=== PATIENT | female | born 1950 | race Caucasian/White ===

== ENCOUNTER 2024-06-24 08:13 | Day surgery (SDC) | payer MEDICARE, OTHER, SELFPAY ==
[2024-06-24] VITALS (9 sets, daily range): BP systolic 117–152; BP diastolic 59–78; PULSE 62–72; RESP 14–18; TEMP 36.4–37.4; O2SAT 94–99
--- NOTE | 2024-06-24 | DI.US.S_ITS ---
PROCEDURE: US BIOPSY LIVER Ultrasound-guided liver biopsy with sedation analgesia for approximately 15 minutes. INDICATIONS: LIVER MASSES TECHNIQUE: The indications, alternatives, benefits, risks, and complications of the procedure were explained to the patient. Written informed consent was obtained and placed in the chart. Continuous EKG and hemodynamic monitoring was started by trained personnel. Real-time sonography was utilized to choose the site for percutaneous hepatic biopsy. The skin was prepped and draped in the usual sterile fashion. 1% lidocaine was infiltrated down to the hepatic capsule. A coaxial needle was then advanced into the liver under direct sonographic visualization. A biopsy apparatus was then utilized, and core biopsies were obtained. The needle was then withdrawn; a bandage and overlying weight were applied to the biopsy site. COMPARISON: Outside Facility, RG, CT ABDOMEN/PELVIS WITH CONTRAST, 06/12/2024, 16:42. FINDINGS: Biopsy site(s): Left lobe of the liver, subxiphoid Needle: BlueArc biopsy needle set. 18 gauge Number of passes: 5 Medications: 1% lidocaine for local anaesthesia. IV Versed and Fentanyl for conscious sedation for approximately 15 minutes (see nursing record). Complications: None. Gelfoam slurry injected. Procedure was well tolerated. IMPRESSION: Successful ultrasound-guided liver biopsy, with pathology results pending. Dictated by: Jam Ascencio M.D. on 06/24/2024 at 17:57 Approved by: Jam Ascencio M.D. on 06/24/2024 at 17:58
--- NOTE | 2024-06-24 | PATH_ITS ---
[facility] Accession Number: [id number] No. of containers..01 Tissue . 01 Material submitted: . liver - LEFT LOBE LIVER MASS . 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 V 06/28/2024 1325 Local . 01 Comment: The immunoprofile of the malignant cells is consistent with a gastrointestinal primary. The findings of negative cytokeratin 7 and positive cytokeratin 20 may favor a lower GI (colonic) origin. That said, upper GI and heaptobiliary primary (including intrahepatic cholangiocarcinoma) cannot be entirely excluded. Correlation with clinical, endoscopic, and imaging findings are recommended to determine the primary site. . As part of routine quality control clerk, Dr. Trevino has reviewed this case and agrees with the diagnosis of adenocarcinoma with gastrointestinal immunophenotype. The preliminary finding of carcinoma was reported to Dr. Delgado via [facility] by Dr. Gomez on 06/26/2024 at 4:00 p.m. The specific findings in this case were discussed between Dr. Delgado and Dr. Gomez on 06/27/2024 at 4:25 p.m. . 01 Electronically signed: . Terrance Gomez MD, PhD, Pathologist NPI- [id number] . 01 Gross description: . Received in formalin with two patient identifiers and US biopsy liver, are seven owens needle cores, 0.4 to 1.5 cm in greatest dimension. Submitted entirely in A1. ([id number]) /MRV 06/25/2024 1744 Local . 01 Microscopic: . Sections are of liver parenchyma distorted by proliferation of epithelioid cells in a trabecular growth pattern with a sclerotic stroma. Scattered glandular lumina are seen. To further classify the malignancy, a panel of immunohistochemical stains is performed (each with an appropriately positive control). The malignant cells are strongly and diffusely positive for SASHA immunoreactivity, consistent with an adenocarcinoma. The malignant cells are negative for cytokeratin 7 immunoreactivity, and diffusely positive for cytokeratin 20 immunoreactivity. The malignant cells are negative for immunoreactivity of markers of specific differentiation including breast (GATA3), Mullerian (PAX8), neuroendocrine (synaptophysin), and lung (TTF1 and napsin A). The malignant cells are positive for villin (variable) and SATB2 immunoreactivity, consistent with gastrointestinal or hepatobiliary origin. . * This test was developed and its performance characteristics determined by [facility]. It has not been cleared or approved by the [place]. Food and Drug Administration. The FDA has determined that such clearance or approval is not necessary. This test is used for clinical purposes. It should not be regarded as investigational or for research. . 01 Pathologist provided ICD-10: C78.7 . 01 CPT . 281909, C53099, N20373 Specimen Comment: A courtesy copy of this report has been sent to [facility] Performed at: [address] [address], [place], [place] [id number] MD Valerio Trevino MD Phone: [phone]
[2024-06-24 09:04] LABS: Add Manual Diff / Slide Review NO; Basophils Absolute Auto 100 /uL (0-100); Basophils Percent Auto 0.9 % (0-2); Eosinophils Absolute Auto 300 /uL (0-450); Eosinophils Percent Auto 2.7 % (2-4); Hematocrit 40.3 % (36-46); Hemoglobin 13.6 g/dL (12.0-16.0); Lymphocytes Absolute Auto 500 /uL (1100-4500); Lymphocytes Percent Auto 4.3 % (25-40); Mean Corpuscular HGB Conc 33.7 % (30-36); Mean Corpuscular Hemoglobin 29.9 PG (26-34); Mean Corpuscular Volume 88.7 fL (80-100); Monocytes Absolute Auto 1100 /uL (0-900); Monocytes Percent Auto 8.7 % (3-14); Neutrophils Absolute Auto 10600 /uL (1500-7000); Neutrophils Percent Auto 83.4 % (50-75); Platelet Count 319 X10^3/uL (150-400); Red Blood Cell Count 4.55 X10^6/uL (4.0-5.2); Red Cell Distribution Width 13.4 % (11.6-14.8); White Blood Cell Count 12.7 X10^3/uL (4.5-11.0)
[2024-06-24 09:11] LABS: INR 1.2 (0.9-1.3); Prothrombin Time 14.3 SECONDS (9.4-12.5)
[2024-06-24 09:14] LABS: PTT Partial Thromboplastin Tim 29 SECONDS (25.1-36.5)
[2024-06-24] MEDS: fentaNYL 100 MCG/2 ML INJ IV (10:33)
[2024-06-24] MEDS: MIDAZOLAM 2 MG/2 ML VIAL IV (10:34)
--- NOTE | 2024-06-24 10:42 | SUR.PHASEII ---
1030: Patient returned from diagnostic imaging s/p liver biopsy. Patient denies any pain or nausea. VSS. No active bleeding noted. Sandbag in place to abdomen per protocol. Call light in place. Updated family with plan of care.
--- NOTE | 2024-06-24 11:08 | SUR.PHASEII ---
Sandbag removed. VSS. Patient continues to deny pain or nausea. Soup and pudding ordered for patient. [place] juice given.
--- NOTE | 2024-06-24 12:28 | SUR.PHASEII ---
Discharged patient home in stable condition. Bandaid to abdomen remains clean, dry and intact with no evidence of bleeding noted.
== END 2024-06-24 12:31 | disposition home or self-care (01) ==
PROVIDERS: Family Provider Naturopath; PCP Naturopath; Referring Provider Family Medicine; Visit Provider Family Medicine
PROC: BF25ZZZ Computerized Tomography (CT Scan) of Liver (ICD-10-PCS; CPT 47000; principal; 2024-06-24 09:30)
DX: R16.0 Hepatomegaly, not elsewhere classified (principal)
CPT/HCPCS: 47000; 76942; 85025; 85610; 85730; J2250; J3010